=== PATIENT | male | born 1990 | race Caucasian/White ===

== ENCOUNTER 2017-02-15 01:40 | Emergency (ER) | payer SELFPAY ==
[~2017-02-15] VITALS: Ht 182.9 cm; Wt 101.0 kg
[~2017-02-15 01:40] MED LIST: AMOX875 PO; HYDR-3533 PO; IBUP600T26 PO; MMW SSP
[2017-02-15 01:46] VITALS: BP 124/84; PULSE 99; RESP 18; TEMP 98.2; O2SAT 98
[2017-02-15 01:59] VITALS: BP 124/84; PULSE 99; RESP 18; TEMP 98.2; O2SAT 98
[2017-02-15] MEDS ORDERED: AMOX500T PO (02:05)
[2017-02-15] MEDS ORDERED: IBUP-232 PO (02:05)
--- NOTE | 2017-02-15 02:06 | PD ---
HPI Chief Complaint: Oral / Dental Pain or Problem Time Seen by Provider: 02:04 Travel History International Travel<30 days: No Contact w/Intl Traveler<30days: No Traveled to known affect area: No History of Present Illness HPI Patient is a 27-year-old male presents to emergency department for evaluation of headache. Patient states that he's noticed his teeth have been hurting primarily in the left lower and right lower side for the past few days and this is extended into pain under his tongue now radiating up into the occiput of his head. Denies any fever denies any facial swelling. States that he has not followed up with a dentist in the past, he had some amoxicillin that was left over from a prior prescription and he took some of these the other day. Has not tried anything for pain prior to arrival. Does not follow-up with a dentist. Denies the worst headache of his life, denies thunderclap presentation , denies any blurred vision focalized weakness numbness tingling in extremities. [facility] Past Medical History Asthma: No Diminished Hearing: No GERD: Yes ( AN INFANT) Seizures: Yes (seizures as a small child - last seizure around age 3) Social History Alcohol Use: No Tobacco Use: No Substance Use: No Allergies-Medications (Allergen,Severity, Reaction): Coded Allergies: No Known Allergies (Verified , 02/15/17) Reported Meds & Prescriptions Reported Meds & Active Scripts Active Amoxicillin 500 Mg Tab 500 Mg PO BID 10 Days Ibuprofen 600 Mg Tab 600 Mg PO Q6H PRN Review of Systems Except as stated in HPI: all other systems reviewed are Neg Physical Exam Narrative GENERAL: Well-nourished, well-developed patient. In no distress. Appears comfortable and not in any pain. SKIN: Focused skin assessment warm/dry. HEAD: Normocephalic. Atraumatic, bearded but no facial swelling seen. EYES: No scleral icterus. No injection or drainage. ENT: TMs clear bilaterally, oropharynx clear and patent, no sublingual tenderness. There are multiple dental caries seen particularly on the molars in bilateral upper and lower sides. There is some erosion on the primary incisor on the maxillary surface. No obvious dental abscess seen. NECK: Supple, trachea midline. No JVD or lymphadenopathy. CARDIOVASCULAR: Regular rate and rhythm without murmurs, gallops, or rubs. RESPIRATORY: Breath sounds equal bilaterally. No accessory muscle use. GASTROINTESTINAL: Abdomen soft, non-tender, nondistended. MUSCULOSKELETAL: No cyanosis, or edema. NEUROLOGICAL: Cranial nerves II through XII are grossly intact and nonfocal, 5 out of 5 strength in all 4 extremities. BACK: Nontender without obvious deformity. No CVA tenderness. Data Data Last Documented VS Vital Signs Date Time Temp Pulse Resp B/P Pulse Ox O2 Delivery O2 Flow Rate FiO2 02/15/17 02:01 99 18 02/15/17 01:59 98.2 124/84 98 Orders Ibuprofen (Motrin) (02/15/17 02:15) Amoxicillin (Trimox) (02/15/17 02:15) [facility] Medical Decision Making Medical Screen Exam Complete: Yes Emergency Medical Condition: Yes Differential Diagnosis Dental pain, headache, jaw pain, subarachnoid hemorrhage seems highly unlikely, acute intracranial pathology seems highly unlikely. Narrative Course 27-year-old male appears well in no obvious distress. Complains of a headache and sublingual pain. Multiple dental caries seen. Discussed he needs follow- up with dentist. He was given ibuprofen for pain, ambulated from the emergency department smiling and in no obvious distress. He is stable for discharge at this time. He was also given a dental referral packet and a referral to the [facility]. Diagnosis Primary Impression: Headache Additional Impression: Dental caries Additional Instructions: Take your antibiotics until all of them are gone. Follow-up with a dentist, follow-up with your primary care physician or the [facility] for a checkup. If he start having high fevers return to the emergency department. Med/Other Pt SpecificInfo: Prescription(s) given Scripts Amoxicillin 500 Mg [id number] Mg PO BID 10 Days Ref 0 Prov:Flo Raphael MD 02/15/17 Ibuprofen 600 Mg [id number] Mg PO Q6H PRN (PAIN) #30 TAB Ref 0 Prov:Flo Raphael MD 02/15/17 Disposition: 01 DISCHARGE HOME Condition: Stable Flo Raphael MD Feb 15, 2017 02:06
[2017-02-15] MEDS ORDERED: IBUPROFEN 600 MG TAB PO ONE (02:15)
[2017-02-15] MEDS ORDERED: AMOXICILLIN (TRIHYDRATE) 500 MG CAP PO ONE (02:15)
== END 2017-02-15 02:30 | disposition home or self-care (01) ==
LOC: PHED 01:40
DX: R51 Headache (principal); K02.9 Dental caries, unspecified
CPT/HCPCS: 99283

== ENCOUNTER 2017-03-23 23:46 | Emergency (ER) | payer MEDICAID ==
[~2017-03-23] VITALS: Ht 182.9 cm; Wt 98.0 kg
[~2017-03-23 23:46] MED LIST changes: +AMOX500T PO; -AMOX875 PO; -HYDR-3533 PO; +IBUP-232 PO; -IBUP600T26 PO; -MMW SSP
[2017-03-23 23:56] VITALS: BP 135/95; PULSE 81; RESP 18; TEMP 98.5; O2SAT 95
[2017-03-24] MEDS ORDERED: AMOX500T PO (00:45)
--- NOTE | 2017-03-24 00:46 | PD ---
HPI Chief Complaint: Chest Pain Time Seen by Provider: 00:39 Travel History International Travel<30 days: No Contact w/Intl Traveler<30days: No Traveled to known affect area: No History of Present Illness HPI The patient is a 27-year-old male that complains of a dental infection around teeth #17 and 18. He does have a dental appointment next month. He felt little bit of chest pain but this apparently has resolved and was related to his swelling in his left cheek. He does notice swelling in the left buccal area. He denies any fever or chills. He denies any history of heart disease. [facility] Past Medical History Medical History: Denies Significant Hx Asthma: No Diminished Hearing: No GERD: Yes ( AN ) Seizures: Yes (seizures as a small child - last seizure around age 3) Tetanus Vaccination: Unknown Influenza Vaccination: No Past Surgical History Surgical History: No Previous Surgery Social History Alcohol Use: Yes Tobacco Use: Yes Substance Use: No Allergies-Medications (Allergen,Severity, Reaction): Coded Allergies: No Known Allergies (Verified , 03/23/17) Reported Meds & Prescriptions Reported Meds & Active Scripts Active Review of Systems Except as stated in HPI: all other systems reviewed are Neg Physical Exam Narrative GENERAL: The patient is alert, oriented 3 and moderate apparent distress with his dental discomfort. His vital signs show blood pressure 135/95 but are otherwise normal. SKIN: Focused skin assessment warm/dry. HEAD: Atraumatic. Normocephalic. EYES: Pupils equal and round. No scleral icterus. No injection or drainage. ENT: No nasal bleeding or discharge. Mucous membranes pink and moist. NECK: Trachea midline. No JVD. CARDIOVASCULAR: Regular rate and rhythm. No murmur appreciated. RESPIRATORY: No accessory muscle use. Clear to auscultation. Breath sounds equal bilaterally. GASTROINTESTINAL: Abdomen soft, non-tender, nondistended. Hepatic and splenic margins not palpable. MUSCULOSKELETAL: No obvious deformities. No clubbing. No cyanosis. No edema. NEUROLOGICAL: Awake and alert. No obvious cranial nerve deficits. Motor grossly within normal limits. Normal speech. PSYCHIATRIC: Appropriate mood and affect; insight and judgment normal. DENTAL: No loose or chipped teeth. No malocclusion. There is exquisite tenderness over teeth #17 and 18 without any drainable abscess. There is externally visible buccal swelling on the left. Data Data Last Documented VS Vital Signs Date Time Temp Pulse Resp B/P Pulse Ox O2 Delivery O2 Flow Rate FiO2 03/24/17 00:00 Room Air 03/23/17 23:56 98.5 81 18 135/95 95 MDM Medical Decision Making Medical Screen Exam Complete: Yes Emergency Medical Condition: Yes Medical Record Reviewed: Yes Interpretation(s) The EKG shows sinus rhythm with a rate of 82 and is completely normal. Differential Diagnosis Dental infection, Kai's anginaunlikely, drainable abscess, acute coronary syndromehighly unlikely Narrative Course The patient has a dental infection. There are no drainable abscess is present. Diagnosis Primary Impression: Dental caries Additional Instructions: Make sure you keep your appointment with a dentist. I gave you to refills on the antibiotics and it is free at [facility]. The Motrin is 800 mg 3 times daily. Med/Other Pt SpecificInfo: Prescription(s) given Scripts Amoxicillin 500 Mg [id number] Mg PO TID 14 Days Ref 0 Prov:Rubin Orr MD 03/24/17 Disposition: 01 DISCHARGE HOME Condition: Stable Rubin Orr MD Mar 24, 2017 00:46
[2017-03-24] MEDS ORDERED: IBUP800T23 PO (00:49)
[2017-03-24] MEDS ORDERED: cefTRIAXone INJ 1,000 MG in SODIUM CHLORIDE 0.9% INJ 100 ML IV ONE (01:00)
[2017-03-24 01:35] VITALS: BP 130/88; PULSE 80; RESP 18; O2SAT 98
--- NOTE | 2017-03-25 16:50 | EKG ---
Date Performed: 03/23/2017 Time Performed: 23:56:12 PTAGE: 27 years EKG: Sinus rhythm NORMAL ECG INTERPRETATION BASED ON A DEFAULT AGE OF 41 YEARS PREVIOUS TRACING 02/04/2013 19.53.32 Since previous tracing, no significant change noted DOCTOR: Mavis High Interpretating Date/Time 03/25/2017 16:47:12
== END 2017-03-24 01:35 | disposition home or self-care (01) ==
LOC: PHED 23:46
DX: K02.9 Dental caries, unspecified (principal); K04.7 Periapical abscess without sinus; Z72.0 Tobacco use
CPT/HCPCS: 93005; 96365; 99284; J0696

== ENCOUNTER 2017-04-09 04:27 | Emergency (ER) | payer MEDICAID ==
[~2017-04-09] VITALS: Ht 182.9 cm; Wt 98.0 kg
[~2017-04-09 04:27] MED LIST changes: -IBUP-232 PO; +IBUP800T23 PO
[2017-04-09 04:32] VITALS: BP 131/81; PULSE 69; RESP 18; TEMP 97.7; O2SAT 98
[2017-04-09] MEDS ORDERED: IBUP800T23 PO (05:07)
[2017-04-09] MEDS ORDERED: AMOX500T PO (05:07)
--- NOTE | 2017-04-09 05:08 | PD ---
HPI Chief Complaint: Oral / Dental Pain or Problem Time Seen by Provider: 05:01 Travel History International Travel<30 days: No Contact w/Intl Traveler<30days: No Traveled to known affect area: No History of Present Illness HPI The patient is a 27-year-old male with a history of dental infection who complains of numbness along the lower lip. He is already on amoxicillin and the ibuprofen. He has very little pain and he has a dental appointment on the sixth of next month. [facility] Past Medical History Asthma: No Diminished Hearing: No GERD: Yes ( AN ) Immunizations Current: Yes Seizures: Yes (seizures as a small child - last seizure around age 3) Tetanus Vaccination: Unknown Influenza Vaccination: No Past Surgical History Surgical History: No Previous Surgery Social History Alcohol Use: Yes Tobacco Use: Yes Substance Use: No Allergies-Medications (Allergen,Severity, Reaction): Coded Allergies: No Known Allergies (Verified , 04/09/17) Reported Meds & Prescriptions Reported Meds & Active Scripts Active Amoxicillin 500 Mg Tab 500 Mg PO TID 14 Days Review of Systems Except as stated in HPI: all other systems reviewed are Neg Physical Exam Narrative GENERAL: Well-nourished, well-developed patient in minimal apparent distress with his dental discomfort. His vital signs are normal. SKIN: Focused skin assessment warm/dry. HEAD: Normocephalic. EYES: No scleral icterus. No injection or drainage. NECK: Supple, trachea midline. No JVD or lymphadenopathy. CARDIOVASCULAR: Regular rate and rhythm without murmurs, gallops, or rubs. RESPIRATORY: Breath sounds equal bilaterally. No accessory muscle use. GASTROINTESTINAL: Abdomen soft, non-tender, nondistended. MUSCULOSKELETAL: No cyanosis, or edema. BACK: Nontender without obvious deformity. No CVA tenderness. DENTAL: No loose or chipped teeth. No malocclusion. The patient does have some slight tenderness along the area of tooth #17. No drainable abscesses are noted. Data Data Last Documented VS Vital Signs Date Time Temp Pulse Resp B/P (MAP) Pulse Ox O2 Delivery O2 Flow Rate FiO2 04/09/17 04:32 97.7 69 18 131/81 (98) 98 MDM Medical Decision Making Medical Screen Exam Complete: Yes Emergency Medical Condition: Yes Medical Record Reviewed: Yes Differential Diagnosis Drainable dental abscess, non-drainable dental infection, TMJ pain, ear pain- unlikely Narrative Course The patient has a dental infection which is non-drainable. He will be continuing the amoxicillin and ibuprofen which appear to be working fairly well. He will follow-up as scheduled with his dentist or try to get an earlier appointment. Diagnosis Primary Impression: Dental infection Scripts Amoxicillin (Amoxicillin) 500 Mg Tab 500 MG PO TID for Infection, #30 TAB 0 Refills Prov: Rubin Orr MD 04/09/17 Ibuprofen (Ibuprofen) 800 Mg Tab 800 MG PO TID, #33 TAB 0 Refills Prov: Rubin Orr MD 04/09/17 Disposition: 01 DISCHARGE HOME Condition: Stable Rubin Orr MD Apr 09, 2017 05:08
== END 2017-04-09 05:14 | disposition home or self-care (01) ==
LOC: PHED 04:27
DX: K04.7 Periapical abscess without sinus (principal)
CPT/HCPCS: 99283

== ENCOUNTER 2017-04-30 07:50 | Emergency (ER) | payer MEDICAID ==
[~2017-04-30] VITALS: Ht 182.9 cm; Wt 98.0 kg
[2017-04-30 07:53] VITALS: BP 141/93; PULSE 67; RESP 12; TEMP 98.3; O2SAT 98
[2017-04-30 08:17] VITALS: BP 126/73; PULSE 69; RESP 14; O2SAT 98
[2017-04-30 08:42] LABS: BASOPHIL % 0.4 % (0.0-2.0); EOSINOPHIL # 0.3 TH/MM3 (0-0.4); EOSINOPHIL % 4.1 % (0.0-4.0); HEMATOCRIT 42.5 % (39.0-51.0); HEMO FLAGS DIFF FINAL; LYMPH % 28.3 % (9.0-44.0); LYMPHOCYTE # 2.3 TH/MM3 (1.0-4.8); MEAN CELL VOLUME 84.6 FL (80.0-100.0); MEAN CORPUSCULAR HEMOGLOBIN 29.5 PG (27.0-34.0); MEAN CORPUSCULAR HGB CONC 34.9 % (32.0-36.0); NEUT % 60.2 % (16.0-70.0); PLATELET COUNT 238 TH/MM3 (150-450); RED BLOOD COUNT 5.02 MIL/MM3 (4.50-5.90); RED CELL DISTRIBUTION WIDTH 13.6 % (11.6-17.2); WHITE BLOOD COUNT 8.3 TH/MM3 (4.0-11.0)
[2017-04-30 08:54] LABS: ANION GAP 3 MEQ/L (5-15); BICARBONATE 26.7 MEQ/L (21.0-32.0); BLOOD UREA NITROGEN 6 MG/DL (7-18); CHLORIDE 109 MEQ/L (98-107); GLOMERULAR FILTRATION RATE 92 ML/MIN (>89); POTASSIUM 4.1 MEQ/L (3.5-5.1); SODIUM (NA) 139 MEQ/L (136-145)
[2017-04-30 08:57] LABS: CREATINE KINASE 249 U/L (39-308)
--- NOTE | 2017-04-30 09:09 | RADRPT ---
EXAM DATE/TIME: 04/30/2017 08:44 [facility] COMPARISON: No previous studies available for comparison. INDICATIONS : Chest pain. Patient complains of headache, bilateral hand and arm pain., dizziness, and heart racing. MEDICAL HISTORY : None. SURGICAL HISTORY : None. ENCOUNTER: Initial ACUITY: 2 days PAIN SCORE: 0/10 LOCATION: Bilateral chest FINDINGS: A single view of the chest demonstrates the lungs to be symmetrically aerated without evidence of mas s, infiltrate or effusion. The cardiomediastinal contours are unremarkable. Osseous structures are intact. CONCLUSION: No acute disease. Chris Curtis MD on April 30, 2017 at 9:08 Board Certified Radiologist. This report was verified electronically.
[2017-04-30 09:11] LABS: CKMB 0.6 NG/ML (0.5-3.6)
[2017-04-30] MEDS ORDERED: PENI500T PO (10:01)
--- NOTE | 2017-04-30 10:01 | PD ---
HPI Chief Complaint: Chest Pain Time Seen by Provider: 08:02 Travel History International Travel<30 days: No Contact w/Intl Traveler<30days: No Traveled to known affect area: No History of Present Illness HPI 27 year old male complains of dentalgia, cephalgia, palpitations, shooting pains in the arms bilaterally, chest pain and insomnia. pt also requests undersigned to complete labor release form. dentalgia is chronic in nature and patient reports prior tx w amox helpful. he is looking for a dentist. cephalgia gradual in onset without fever. no neck stiffness. palpitations come and go. no lightheadedness or syncope/loc. pt drinks 1-2 energy drinks daily. shooting pains in arms are intermittent. no numbness/weakness. pt denies drug alcohol abuse. PFSH Past Medical History Medical History: Denies Significant Hx Asthma: No Diminished Hearing: No GERD: Yes ( AN INFANT) Immunizations Current: Yes Seizures: Yes (seizures as a small child - last seizure around age 3) Tetanus Vaccination: Unknown ?: Not Past Surgical History Surgical History: No Previous Surgery Social History Alcohol Use: Yes ("every other now and then") Tobacco Use: No Substance Use: No Allergies-Medications (Allergen,Severity, Reaction): Coded Allergies: No Known Allergies (Verified , 04/30/17) Reported Meds & Prescriptions Reported Meds & Active Scripts Active Hydroxyzine HCl 50 Mg Tab 50 Mg PO QID PRN Penicillin V Potassium 500 Mg Tab 500 Mg PO Q8H 7 Days Reported Ibuprofen 200 Mg Cap 400 Mg PO Q4H PRN Review of Systems Except as stated in HPI: all other systems reviewed are Neg General / Constitutional: No: Fever Physical Exam Narrative GENERAL: 27 yo male, nad, wnwd, ambulatory DENTITION: Poor dentition generally; carious dentition L upper and lower sides; no ulcerations; no abscess SKIN: Warm and dry. HEAD: Atraumatic. Normocephalic. EYES: Pupils equal and round. No scleral icterus. No injection or drainage. ENT: No nasal bleeding or discharge. Mucous membranes pink and moist. NECK: Trachea midline. No JVD. CARDIOVASCULAR: Regular rate and rhythm. RESPIRATORY: No accessory muscle use. Clear to auscultation. Breath sounds equal bilaterally. GASTROINTESTINAL: Abdomen soft, non-tender, nondistended. Hepatic and splenic margins not palpable. MUSCULOSKELETAL: Extremities without clubbing, cyanosis, or edema. No obvious deformities. NEUROLOGICAL: Awake and alert. No obvious cranial nerve deficits. Motor grossly within normal limits. Five out of 5 muscle strength in the arms and legs. Normal speech. PSYCHIATRIC: Appropriate mood and affect; insight and judgment normal. Data Data Last Documented VS Vital Signs Date Time Temp Pulse Resp B/P (MAP) Pulse Ox O2 Delivery O2 Flow Rate FiO2 04/30/17 10:15 04/30/17 08:17 69 14 98 Room Air 04/30/17 07:53 98.3 vs reviewed Orders Orders Electrocardiogram (04/30/17 ) Complete Blood Count With Diff (04/30/17 08:08) Basic Metabolic Panel (Bmp) (04/30/17 08:08) Ckmb (Isoenzyme) Profile (04/30/17 08:08) Troponin I (04/30/17 08:08) Chest, Single Ap (04/30/17 08:08) Iv Access Insert/Monitor (04/30/17 08:08) Ecg Monitoring (04/30/17 08:08) Oxygen Administration (04/30/17 08:08) Oximetry (04/30/17 08:08) CKMB (04/30/17 08:20) CKMB% (04/30/17 08:20) Labs Laboratory Tests Test 04/30/17 08:20 White Blood Count 8.3 TH/MM3 Red Blood Count 5.02 MIL/MM3 Hemoglobin 14.8 GM/DL Hematocrit 42.5 % Mean Corpuscular Volume 84.6 FL Mean Corpuscular Hemoglobin 29.5 PG Mean Corpuscular Hemoglobin Concent 34.9 % Red Cell Distribution Width 13.6 % Platelet Count 238 TH/MM3 Mean Platelet Volume 9.3 FL Neutrophils (%) (Auto) 60.2 % Lymphocytes (%) (Auto) 28.3 % Monocytes (%) (Auto) 7.0 % Eosinophils (%) (Auto) 4.1 % Basophils (%) (Auto) 0.4 % Neutrophils # (Auto) 5.0 TH/MM3 Lymphocytes # (Auto) 2.3 TH/MM3 Monocytes # (Auto) 0.6 TH/MM3 Eosinophils # (Auto) 0.3 TH/MM3 Basophils # (Auto) 0.0 TH/MM3 CBC Comment DIFF FINAL Differential Comment Blood Urea Nitrogen 6 MG/DL Creatinine 0.98 MG/DL Random Glucose 117 MG/DL Calcium Level 8.8 MG/DL Sodium Level 139 MEQ/L Potassium Level 4.1 MEQ/L Chloride Level 109 MEQ/L Carbon Dioxide Level 26.7 MEQ/L Anion Gap 3 MEQ/L Estimat Glomerular Filtration Rate 92 ML/MIN Total Creatine Kinase 249 U/L Creatine Kinase MB 0.6 NG/ML Troponin I LESS THAN 0.02 NG/ML MDM Medical Decision Making Medical Screen Exam Complete: Yes Emergency Medical Condition: Yes Differential Diagnosis anxiety, dental carry, abscess, electrolyte abnormality, anemia, acs, arrhythmia , meningitis, tmj Narrative Course CBC & BMP Diagram 04/30/17 08:20 Calcium Level 8.8 Tn < 0.02 EKG: sinus, no ischemic injury pattern, normal axis and intervals Last Impressions Chest X-Ray 04/30/17 0808 Signed Impressions: Service Date/Time: Sunday, April 30, 2017 08:44 - CONCLUSION: No acute disease. Chris Curtis MD Pt reassured. Follow up with dentist. Dental infection may benefit from pen vk. Follow up with pmd for completion of return to work form, including lifting abilities and work restrictions. Diagnosis Primary Impression: Dental caries Additional Impressions: Headache Qualified Codes: R51 - Headache Palpitations Referrals: Dentist 2 days Med/Other Pt SpecificInfo: Prescription(s) given Scripts Penicillin V Potassium (Penicillin V Potassium) 500 Mg Tab 500 MG PO Q8H for Infection for 7 Days, #21 TAB 0 Refills Prov: Joaquin Deng MD 04/30/17 Disposition: 01 DISCHARGE HOME Condition: Stable Joaquin Deng MD Apr 30, 2017 10:01
--- NOTE | 2017-04-30 14:09 | EKG ---
Date Performed: 04/30/2017 Time Performed: 08:11:39 PTAGE: 27 years EKG: Sinus rhythm NORMAL ECG Compared to prior tracing no significant change PREVIOUS TRACING : 03/23/2017 23.56 DOCTOR: Nathaniel Oseguera Interpretating Date/Time 04/30/2017 14:06:51
[2017-04-30] MEDS ORDERED: IBUP200C PO (15:35)
[2017-04-30] MEDS ORDERED: HYDR50TA94 PO (16:01)
== END 2017-04-30 10:17 | disposition home or self-care (01) ==
LOC: NEPE 07:50
DX: K02.9 Dental caries, unspecified (principal); R51 Headache; R00.2 Palpitations; K21.9 Gastro-esophageal reflux disease without esophagitis; R56.9 Unspecified convulsions; G47.00 Insomnia, unspecified
CPT/HCPCS: 71010; 80048; 82550; 82552; 84484; 85025; 93005; 99284

== ENCOUNTER 2017-04-30 15:28 | Emergency (ER) | payer MEDICAID ==
[~2017-04-30 15:28] MED LIST changes: +PENI500T PO
[2017-04-30 15:31] VITALS: BP 146/70; PULSE 86; RESP 18; TEMP 98.5; O2SAT 98
[2017-04-30] MEDS ORDERED: IBUP200C PO (15:35)
--- NOTE | 2017-04-30 15:55 | PD ---
HPI . Palpitations Chief Complaint: Anxiety Time Seen by Provider: 15:47 Travel History International Travel<30 days: No Contact w/Intl Traveler<30days: No Traveled to known affect area: No History of Present Illness HPI Patient presents with a several day history of intermittent palpitations, paresthesias of the hands and feet and blurred vision. He states that the symptoms tend to occur at rest and resolve when he is busy doing something. 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 He developed these symptoms and was seen at a hospital in [place] yesterday morning. He states that he was given a couple of bags of fluid and some medication. He states that he subsequently slept the whole day. He was then sent home by his employer yesterday evening. He presented to the emergency department at [facility] this morning for these symptoms. He was fully evaluated and his workup was negative. He was discharged home with a prescription for penicillin for his dental caries. He states that his symptoms have persisted causing him to present to us this afternoon. He rates his chest pain as 7/10. PFSH Past Medical History Asthma: No Diminished Hearing: No GERD: Yes ( AN INFANT) Immunizations Current: Yes Seizures: Yes (seizures as a small child - last seizure around age 3) Influenza Vaccination: No ?: Not Past Surgical History Surgical History: No Previous Surgery Social History Alcohol Use: Yes ("every other now and then") Tobacco Use: No Substance Use: No Allergies-Medications (Allergen,Severity, Reaction): Coded Allergies: No Known Allergies (Verified , 04/30/17) Reported Meds & Prescriptions Reported Meds & Active Scripts Active Penicillin V Potassium 500 Mg Tab 500 Mg PO Q8H 7 Days Reported Ibuprofen 200 Mg Cap 400 Mg PO Q4H PRN Review of Systems Except as stated in HPI: all other systems reviewed are Neg General / Constitutional: No: Fever, Chills Eyes: Positive: Blurred Vision HENT: Positive: Dental Difficulties Cardiovascular: Positive: Chest Pain or Discomfort, Palpitations Respiratory: Positive: Shortness of Breath Neurologic: Positive: Paresthesia Physical Exam Narrative GENERAL: Awake and alert and in no acute distress. SKIN: warm/dry. Sunburn. HEAD: Normocephalic. Atraumatic. EYES: Pupils equal and round. No scleral icterus. No injection or drainage. ENT: No nasal bleeding or discharge. Mucous membranes pink and moist. NECK: Trachea midline. Full range of motion without pain.. CARDIOVASCULAR: Regular rate and rhythm. Heart sounds are normal. RESPIRATORY: No accessory muscle use. Clear to auscultation. Breath sounds equal bilaterally. GASTROINTESTINAL: Abdomen soft. Nontender. Bowel sounds present. Nondistended. MUSCULOSKELETAL: No obvious deformities. NEUROLOGICAL: Awake and alert. No obvious cranial nerve deficits. Motor grossly within normal limits. Normal speech. PSYCHIATRIC: Appropriate mood and affect; insight and judgment normal. Data Data Last Documented VS Vital Signs Date Time Temp Pulse Resp B/P (MAP) Pulse Ox O2 Delivery O2 Flow Rate FiO2 04/30/17 15:34 86 04/30/17 15:31 98.5 18 146/70 (95) 98 MDM Medical Decision Making Medical Screen Exam Complete: Yes Emergency Medical Condition: Yes Medical Record Reviewed: Yes (this patient was seen earlier today and had an unremarkable CBC, normal electrolytes, normal BUN and creatinine, CK 249, troponin of less than 0.02 and a normal EKG.) Differential Diagnosis Differential diagnosis of palpitations includes but is not limited to anxiety, SVT, aVF with RVR, VT, sinus tachycardia, PVCs Narrative Course This patient presents with signs and symptoms that are classic for panic attacks. He has already had a normal workup earlier today at the main hospital. He will be discharged home with a prescription for hydroxyzine and with instructions to follow up at the [facility]. Diagnosis Primary Impression: Anxiety Patient Instructions: Anxiety (DC), General Instructions Med/Other Pt SpecificInfo: Prescription(s) given Scripts Hydroxyzine HCl (Hydroxyzine HCl) 50 Mg Tab 50 MG PO QID Y for panic attacks, #30 TAB 0 Refills Prov: Chrissie Jacobsen MD 04/30/17 Disposition: 01 DISCHARGE HOME Condition: Stable Chrissie Jacobsen MD Apr 30, 2017 15:55
[2017-04-30] MEDS ORDERED: HYDR50TA94 PO (16:01)
== END 2017-04-30 16:16 | disposition home or self-care (01) ==
LOC: PHED 15:28
DX: F41.9 Anxiety disorder, unspecified (principal)
CPT/HCPCS: 99283

== ENCOUNTER 2017-05-07 01:01 | Emergency (ER) | payer MEDICAID ==
[~2017-05-07] VITALS: Ht 182.9 cm; Wt 97.2 kg
[~2017-05-07 01:01] MED LIST changes: -AMOX500T PO; +HYDR50TA94 PO; +IBUP200C PO; -IBUP800T23 PO
[2017-05-07 01:06] VITALS: BP 126/76; PULSE 69; RESP 16; TEMP 97.8; O2SAT 99
[2017-05-07 01:20] VITALS: BP 133/76; PULSE 55; RESP 16; O2SAT 99
--- NOTE | 2017-05-07 01:52 | PD ---
HPI Chief Complaint: Chest Pain Time Seen by Provider: 01:48 Travel History International Travel<30 days: No Contact w/Intl Traveler<30days: No Traveled to known affect area: No History of Present Illness HPI The patient is a 27-year-old male that complains of head pain for possibly 1 hour. He is a frequent visitor to the emergency department usually for minor problems like anxiety and dental infections. The patient denies any focal neurologic change. He said he had some slight chest pain but this is gone. He does not have a history of heart disease. He may have a history of alcohol abuse. PFSH Past Medical History Asthma: No Diminished Hearing: No GERD: Yes ( AN INFANT) Immunizations Current: Yes Seizures: Yes (seizures as a small child - last seizure around age 3) Tetanus Vaccination: > 5 Years Influenza Vaccination: No Past Surgical History Surgical History: No Previous Surgery Social History Alcohol Use: Yes (Occasionally) Tobacco Use: No Substance Use: No Allergies-Medications (Allergen,Severity, Reaction): Coded Allergies: No Known Allergies (Verified , 05/07/17) Reported Meds & Prescriptions Reported Meds & Active Scripts Active Hydroxyzine HCl 50 Mg Tab 50 Mg PO QID PRN Penicillin V Potassium 500 Mg Tab 500 Mg PO Q8H 7 Days Reported Ibuprofen 200 Mg Cap 400 Mg PO Q4H PRN Review of Systems Except as stated in HPI: all other systems reviewed are Neg Physical Exam Narrative GENERAL: The patient is alert, oriented 3 in minimal apparent distress with his head pain. His vital signs are normal. SKIN: Focused skin assessment warm/dry. HEAD: Atraumatic. Normocephalic. EYES: Pupils equal and round. No scleral icterus. No injection or drainage. ENT: No nasal bleeding or discharge. Mucous membranes pink and moist. NECK: Trachea midline. No JVD. There is no meningismus present. CARDIOVASCULAR: Regular rate and rhythm. No murmur appreciated. RESPIRATORY: No accessory muscle use. Clear to auscultation. Breath sounds equal bilaterally. GASTROINTESTINAL: Abdomen soft, non-tender, nondistended. Hepatic and splenic margins not palpable. No guarding or rebound is present. MUSCULOSKELETAL: No obvious deformities. No clubbing. No cyanosis. No edema. NEUROLOGICAL: Awake and alert. No obvious cranial nerve deficits. Motor grossly within normal limits. Normal speech. PSYCHIATRIC: Appropriate mood and affect; insight and judgment normal. Data Data Last Documented VS Vital Signs Date Time Temp Pulse Resp B/P (MAP) Pulse Ox O2 Delivery O2 Flow Rate FiO2 05/07/17 01:06 97.8 69 16 126/76 (93) 99 Orders Orders Electrocardiogram (05/07/17 01:48) Complete Blood Count With Diff (05/07/17 01:48) Basic Metabolic Panel (Bmp) (05/07/17 01:48) Troponin I (05/07/17 01:48) Ct Brain W/O Iv Contrast(Rout) (05/07/17 01:48) Ketorolac Inj (Toradol Inj) (05/07/17 02:45) Labs Laboratory Tests Test 05/07/17 02:15 White Blood Count 8.6 TH/MM3 Red Blood Count 5.09 MIL/MM3 Hemoglobin 14.7 GM/DL Hematocrit 42.8 % Mean Corpuscular Volume 84.0 FL Mean Corpuscular Hemoglobin 28.8 PG Mean Corpuscular Hemoglobin Concent 34.3 % Red Cell Distribution Width 12.5 % Platelet Count 252 TH/MM3 Mean Platelet Volume 9.3 FL Neutrophils (%) (Auto) 47.6 % Lymphocytes (%) (Auto) 36.4 % Monocytes (%) (Auto) 9.2 % Eosinophils (%) (Auto) 6.1 % Basophils (%) (Auto) 0.7 % Neutrophils # (Auto) 4.1 TH/MM3 Lymphocytes # (Auto) 3.1 TH/MM3 Monocytes # (Auto) 0.8 TH/MM3 Eosinophils # (Auto) 0.5 TH/MM3 Basophils # (Auto) 0.1 TH/MM3 CBC Comment DIFF FINAL Differential Comment Blood Urea Nitrogen 11 MG/DL Creatinine 0.83 MG/DL Random Glucose 99 MG/DL Calcium Level 8.9 MG/DL Sodium Level 140 MEQ/L Potassium Level 3.7 MEQ/L Chloride Level 106 MEQ/L Carbon Dioxide Level 27.4 MEQ/L Anion Gap 7 MEQ/L Estimat Glomerular Filtration Rate 112 ML/MIN Troponin I LESS THAN 0.02 NG/ML MDM Medical Decision Making Medical Screen Exam Complete: Yes Emergency Medical Condition: Yes Medical Record Reviewed: Yes Interpretation(s) The basic metabolic profile is normal and the troponin I is normal. The CBC is normal. The CT brain is normal. Differential Diagnosis Anxiety, tension headache, drug seeking behavior, migraine headache-unlikely, Narrative Course The patient has anxiety but also has a headache which may simply be a conversion reaction or tension headache. The patient is given Motrin for this. Diagnosis Primary Impression: Headache Additional Impression: Anxiety about health Additional Instructions: Take the Motrin one tablet every 8 hours as needed for the headache or aches and pains that you have. Follow-up with a primary care physician. Med/Other Pt SpecificInfo: Prescription(s) given Scripts Ibuprofen (Ibuprofen) 800 Mg Tab 800 MG PO Q8H Y for headache, #44 TAB 0 Refills Prov: Rubin Orr MD 05/07/17 Disposition: 01 DISCHARGE HOME Condition: Stable Rubin Orr MD May 07, 2017 01:52
--- NOTE | 2017-05-07 02:20 | RADRPT ---
EXAM DATE/TIME: 05/07/2017 02:05 [facility] COMPARISON: No previous studies available for comparison. INDICATIONS : Cephalgia. RADIATION DOSE: 57.86 CTDIvol (mGy) MEDICAL HISTORY : Seizures. SURGICAL HISTORY : None. ENCOUNTER: Initial ACUITY: 1 day PAIN SCALE: 7/10 LOCATION: Bilateral cranial TECHNIQUE: Multiple contiguous axial images were obtained of the head. Using automated exposure control and adj ustment of the mA and/or kV according to patient size, radiation dose was kept as low as reasonably a chievable to obtain optimal diagnostic quality images. DICOM format image data is available electro nically for review and comparison. FINDINGS: CEREBRUM: The ventricles are normal for age. No evidence of midline shift, mass lesion, hemorrhage or acute in farction. No extra-axial fluid collections are seen. POSTERIOR FOSSA: The cerebellum and brainstem are intact. The 4th ventricle is midline. The cerebellopontine angle i s unremarkable. EXTRACRANIAL: The visualized portion of the orbits is intact. SKULL: The calvaria is intact. No evidence of skull fracture. CONCLUSION: Normal examination. Jose Martin Lopez MD on May 07, 2017 at 2:17 Board Certified Radiologist. This report was verified electronically.
[2017-05-07 02:32] LABS: AUTOMATED NEUTROPHIL # 4.1 TH/MM3 (1.8-7.7); BASOPHIL # 0.1 TH/MM3 (0-0.2); BASOPHIL % 0.7 % (0.0-2.0); EOSINOPHIL # 0.5 TH/MM3 (0-0.4); EOSINOPHIL % 6.1 % (0.0-4.0); HEMATOCRIT 42.8 % (39.0-51.0); HEMO FLAGS DIFF FINAL; LYMPH % 36.4 % (9.0-44.0); LYMPHOCYTE # 3.1 TH/MM3 (1.0-4.8); MEAN CORPUSCULAR HEMOGLOBIN 28.8 PG (27.0-34.0); MEAN CORPUSCULAR HGB CONC 34.3 % (32.0-36.0); MONO % 9.2 % (0.0-8.0); NEUT % 47.6 % (16.0-70.0); PLATELET COUNT 252 TH/MM3 (150-450); RED BLOOD COUNT 5.09 MIL/MM3 (4.50-5.90); RED CELL DISTRIBUTION WIDTH 12.5 % (11.6-17.2); WHITE BLOOD COUNT 8.6 TH/MM3 (4.0-11.0)
[2017-05-07 02:43] LABS: CHLORIDE 106 MEQ/L (98-107); POTASSIUM 3.7 MEQ/L (3.5-5.1); SODIUM (NA) 140 MEQ/L (136-145)
[2017-05-07] MEDS ORDERED: KETOROLAC TROMETHAMINE 60 MG/2 ML (IM) VIAL IVP ONE (02:45)
[2017-05-07 02:46] LABS: ANION GAP 7 MEQ/L (5-15); BICARBONATE 27.4 MEQ/L (21.0-32.0); BLOOD UREA NITROGEN 11 MG/DL (7-18)
[2017-05-07 02:49] LABS: GLOMERULAR FILTRATION RATE 112 ML/MIN (>89)
[2017-05-07 03:05] VITALS: BP 119/73; PULSE 66; RESP 16; O2SAT 99
[2017-05-07] MEDS ORDERED: IBUP800T23 PO (03:15)
--- NOTE | 2017-05-07 12:16 | EKG ---
Date Performed: 05/07/2017 Time Performed: 01:12:36 PTAGE: 27 years EKG: Normal Sinus rhythm Normal ECG PREVIOUS TRACING : 04/30/2017 08.11 Unchanged from the prior tracing. DOCTOR: Cosmo Jimenez Interpretating Date/Time 05/07/2017 12:16:21
== END 2017-05-07 03:34 | disposition home or self-care (01) ==
LOC: PHED 01:01
DX: R51 Headache (principal); F41.8 Other specified anxiety disorders; R07.9 Chest pain, unspecified; Z86.69 Personal history of other diseases of the nervous system and sense organs
CPT/HCPCS: 70450; 80048; 84484; 85025; 93005; 96374; 99285; J1885

== ENCOUNTER 2017-06-20 20:11 | Emergency (ER) | payer MEDICAID ==
[~2017-06-20] VITALS: Ht 182.9 cm; Wt 93.4 kg
[~2017-06-20 20:11] MED LIST changes: +IBUP1TAB7 PO
[2017-06-20 20:14] VITALS: BP 142/77; PULSE 80; RESP 16; TEMP 97.6; O2SAT 99
[2017-06-20 22:00] VITALS: BP 135/71; PULSE 57; RESP 20; O2SAT 98
--- NOTE | 2017-06-20 22:01 | PD ---
HPI Chief Complaint: Chest Pain Time Seen by Provider: 22:01 Travel History International Travel<30 days: No Contact w/Intl Traveler<30days: No Traveled to known affect area: No History of Present Illness HPI 27-year-old male came to the emergency room with history of vomiting, diarrhea and dizziness for past 3 days. His significant other is giving most of the history. She is quite vocal about his chest pain that has been going on for over a year now. As per her patient has been evaluated multiple times in [facility] for the chest pain. However the new symptoms now are the vomiting, diarrhea and dizziness. They're trying to find a primary care for him in the meanwhile. His last vomit was after he had his dinner when he gagged and vomited. No known sick contacts. Vital signs are stable. Patient says that he has burning in his epigastric area. He does not appear to be in any discomfort. The burning sensation does not radiate anywhere else. No syncopal episodes. [facility] Past Medical History Narrative Medical List of his past medical, surgical, social and family history is reviewed from the nursing note. Asthma: No Diminished Hearing: No GERD: Yes ( AN INFANT) Immunizations Current: Yes Seizures: Yes (seizures as a small child - last seizure around age 3) ?: Not Social History Alcohol Use: Yes (Occasionally) Tobacco Use: No Substance Use: No Allergies-Medications (Allergen,Severity, Reaction): Coded Allergies: No Known Allergies (Verified Adverse Reaction, Unknown, 06/20/17) Comments No known drug allergies. Reported Meds & Prescriptions Reported Meds & Active Scripts Active Naprosyn (Naproxen) 500 Mg Tab 500 Mg PO Q12HR PRN Narrative Medication List of his home medications reviewed from the nursing note. Review of Systems Except as stated in HPI: all other systems reviewed are Neg Gastrointestinal: Positive: Nausea, Vomiting, Diarrhea Physical Exam Narrative GENERAL: Awake, alert, no obvious distress SKIN: Focused skin assessment warm/dry. HEAD: Atraumatic. Normocephalic. EYES: Pupils equal and round. No scleral icterus. No injection or drainage. ENT: No nasal bleeding or discharge. Mucous membranes pink and moist. NECK: Trachea midline. No JVD. CARDIOVASCULAR: Regular rate and rhythm. No murmur appreciated. RESPIRATORY: No accessory muscle use. Clear to auscultation. Breath sounds equal bilaterally. GASTROINTESTINAL: Abdomen soft, non-tender, nondistended. Hepatic and splenic margins not palpable. MUSCULOSKELETAL: No obvious deformities. No clubbing. No cyanosis. No edema. NEUROLOGICAL: Awake and alert. No obvious cranial nerve deficits. Motor grossly within normal limits. Normal speech. PSYCHIATRIC: Appropriate mood and affect; insight and judgment normal. Data Data Last Documented VS Vital Signs Date Time Temp Pulse Resp B/P (MAP) Pulse Ox O2 Delivery O2 Flow Rate FiO2 06/21/17 00:04 51 20 127/69 (88) 98 06/20/17 23:51 98.8 Orders Orders Electrocardiogram (06/20/17 20:20) Complete Blood Count With Diff (06/20/17 22:11) Comprehensive Metabolic Panel (06/20/17 22:11) Lipase (06/20/17 22:11) Iv Access Insert/Monitor (06/20/17 22:11) Ecg Monitoring (06/20/17 22:11) Oximetry (06/20/17 22:11) Ondansetron Inj (Zofran Inj) (06/20/17 22:15) Pantoprazole Inj (Protonix Inj) (06/20/17 22:15) Sodium Chlor 0.9% 1000 Ml Inj (Ns 1000 M (06/20/17 22:11) Sodium Chloride 0.9% Flush (Ns Flush) (06/20/17 22:15) Troponin I (06/20/17 22:11) Electrocardiogram (06/20/17 ) Ed Discharge Order (06/20/17 23:08) Labs Laboratory Tests Test 06/20/17 22:25 White Blood Count 9.8 TH/MM3 Red Blood Count 5.24 MIL/MM3 Hemoglobin 14.7 GM/DL Hematocrit 43.3 % Mean Corpuscular Volume 82.6 FL Mean Corpuscular Hemoglobin 28.0 PG Mean Corpuscular Hemoglobin Concent 33.9 % Red Cell Distribution Width 12.2 % Platelet Count 266 TH/MM3 Mean Platelet Volume 9.1 FL Neutrophils (%) (Auto) 50.8 % Lymphocytes (%) (Auto) 35.9 % Monocytes (%) (Auto) 6.5 % Eosinophils (%) (Auto) 5.9 % Basophils (%) (Auto) 0.9 % Neutrophils # (Auto) 5.0 TH/MM3 Lymphocytes # (Auto) 3.5 TH/MM3 Monocytes # (Auto) 0.6 TH/MM3 Eosinophils # (Auto) 0.6 TH/MM3 Basophils # (Auto) 0.1 TH/MM3 CBC Comment DIFF FINAL Differential Comment Blood Urea Nitrogen 15 MG/DL Creatinine 0.97 MG/DL Random Glucose 108 MG/DL Total Protein 7.3 GM/DL Albumin 3.8 GM/DL Calcium Level 8.6 MG/DL Alkaline Phosphatase 115 U/L Aspartate Amino Transf (AST/SGOT) 11 U/L Alanine Aminotransferase (ALT/SGPT) 28 U/L Total Bilirubin 0.2 MG/DL Sodium Level 137 MEQ/L Potassium Level 3.6 MEQ/L Chloride Level 104 MEQ/L Carbon Dioxide Level 26.1 MEQ/L Anion Gap 7 MEQ/L Estimat Glomerular Filtration Rate 94 ML/MIN Troponin I LESS THAN 0.02 NG/ML Lipase 185 U/L MDM Medical Decision Making Medical Screen Exam Complete: Yes Emergency Medical Condition: Yes Medical Record Reviewed: Yes Interpretation(s) Twelve-lead EKG was reviewed by me. Normal sinus rhythm, normal axis, nonspecific ST-T wave changes. Heart rate of 60 bpm. Differential Diagnosis GERD, gastroenteritis, acute gastritis, peptic ulcer disease Narrative Course 11:04 PM blood test results of back and within acceptable limits. Patient was given IV Zofran and IV Protonix. I will discharge him home on prescription for omeprazole and Zofran. Procedures EKG Prior to Arrival: No Diagnosis Primary Impression: Acute gastritis Qualified Codes: K29.00 - Acute gastritis without bleeding Referrals: Primary Care Physician Additional Instructions: Please try to find a primary care for yourselves and have them refer you to a GI specialist. In the meanwhile take the medication as per the prescription direction that's been given to you from the emergency room. Avoid certain diet like those that have high acid content like lying, lemon, tomatoes, strawberries , vinegar etc. Do not drink alcohol till GI has seen you and given further recommendations. Return to the ER if the condition worsens or any other new concerns. Avoid coffee and medications like Motrin/ibuprofen/Advil once again until seen by GI and further recommendations are given. Med/Other Pt SpecificInfo: Prescription(s) given Disposition: DISCHARGE HOME Condition: Stable Myke Arndt MD Jun 20, 2017 22:01
[2017-06-20] MEDS ORDERED: SODIUM CHLOR 0.9% 1000 ML INJ 1,000 ML IV SCH (22:11)
[2017-06-20] MEDS ORDERED: SODIUM CHLORIDE 0.9% FLUSH 10 ML FLUSH IV FLUSH PRN (22:15)
[2017-06-20] MEDS ORDERED: PANTOPRAZOLE SODIUM 40 MG VIAL IVP ONE (22:15)
[2017-06-20] MEDS ORDERED: ONDANSETRON HCL 4 MG/2 ML VIAL IVP ONE (22:15)
[2017-06-20 22:33] LABS: BASOPHIL # 0.1 TH/MM3 (0-0.2); BASOPHIL % 0.9 % (0.0-2.0); EOSINOPHIL # 0.6 TH/MM3 (0-0.4); EOSINOPHIL % 5.9 % (0.0-4.0); HEMATOCRIT 43.3 % (39.0-51.0); HEMO FLAGS DIFF FINAL; LYMPH % 35.9 % (9.0-44.0); LYMPHOCYTE # 3.5 TH/MM3 (1.0-4.8); MEAN CELL VOLUME 82.6 FL (80.0-100.0); MEAN CORPUSCULAR HGB CONC 33.9 % (32.0-36.0); MONO % 6.5 % (0.0-8.0); NEUT % 50.8 % (16.0-70.0); PLATELET COUNT 266 TH/MM3 (150-450); RED BLOOD COUNT 5.24 MIL/MM3 (4.50-5.90); RED CELL DISTRIBUTION WIDTH 12.2 % (11.6-17.2); WHITE BLOOD COUNT 9.8 TH/MM3 (4.0-11.0)
[2017-06-20 22:45] LABS: CHLORIDE 104 MEQ/L (98-107); POTASSIUM 3.6 MEQ/L (3.5-5.1); SODIUM (NA) 137 MEQ/L (136-145)
[2017-06-20 22:49] LABS: ANION GAP 7 MEQ/L (5-15); BICARBONATE 26.1 MEQ/L (21.0-32.0); BLOOD UREA NITROGEN 15 MG/DL (7-18)
[2017-06-20 22:51] LABS: ALT (GPT) 28 U/L (12-78); AST (GOT) 11 U/L (15-37)
[2017-06-20 22:52] LABS: GLOMERULAR FILTRATION RATE 94 ML/MIN (>89)
[2017-06-20 22:53] LABS: TOTAL BILIRUBIN ADULT 0.2 MG/DL (0.2-1.0)
[2017-06-20 22:54] LABS: ALKALINE PHOSPHATASE 115 U/L (45-117)
[2017-06-20] MEDS ORDERED: OMEP20TA93 PO (23:07)
[2017-06-20] MEDS ORDERED: ZOFR4TAB3 SL (23:07)
[2017-06-20 23:51] VITALS: BP 127/69; PULSE 56; RESP 16; TEMP 98.8; O2SAT 99
[2017-06-21 00:04] VITALS: BP 127/69
--- NOTE | 2017-06-21 18:09 | EKG ---
Date Performed: 06/20/2017 Time Performed: 22:19:05 PTAGE: 27 years EKG: Sinus rhythm NORMAL ECG PREVIOUS TRACING : 06/20/2017 20.20 DOCTOR: Joselyn Severino Interpretating Date/Time 06/21/2017 18:07:24
--- NOTE | 2017-06-21 18:12 | EKG ---
Date Performed: 06/20/2017 Time Performed: 20:20:40 PTAGE: 27 years EKG: SINUS BRADYCARDIA WITH SINUS ARRHYTHMIA LEFT POSTERIOR FASCICULAR BLOCK ABNORMAL QRS-T ANGL E ABNORMAL ECG NO PREVIOUS TRACING DOCTOR: Joselyn Severino Interpretating Date/Time 06/21/2017 18:10:19
== END 2017-06-21 00:09 | disposition home or self-care (01) ==
LOC: PHED 20:11
DX: K29.00 Acute gastritis without bleeding (principal); R94.31 Abnormal electrocardiogram [ECG] [EKG]
CPT/HCPCS: 80053; 83690; 84484; 85025; 93005; 96374; 96375; 99284; C9113; J2405; J7030

== ENCOUNTER 2017-06-23 19:46 | Emergency (ER) | payer MEDICAID ==
[~2017-06-23] VITALS: Ht 182.9 cm; Wt 95.0 kg
[~2017-06-23 19:46] MED LIST changes: +OMEP20TA93 PO; +ZOFR4TAB3 SL
[2017-06-23 19:49] VITALS: BP 139/78; PULSE 73; RESP 16; TEMP 98.1; O2SAT 99
[2017-06-23] MEDS ORDERED: SODIUM CHLOR 0.9% 1000 ML INJ 1,000 ML IV ONE (22:55)
--- NOTE | 2017-06-23 22:58 | PD ---
HPI Chief Complaint: Headache Time Seen by Provider: 22:40 Travel History International Travel<30 days: No Contact w/Intl Traveler<30days: No Traveled to known affect area: No History of Present Illness HPI Patient comes emergency Department complaining of intermittent headaches over the past several days. Patient states they come and go feeling stabbing sensation throughout his head. Patient denies anything making this better or worse. Patient denies doing anything for this. Denies any chest pain, shortness of breath, change in vision, loss change in bowel or bladder, fevers, or IV drug use. Patient has been seen in the ER for similar in the past. PFSH Past Medical History Asthma: No Chest Pain: Yes Diminished Hearing: No GERD: Yes Immunizations Current: Yes Seizures: Yes (seizures as a small child - last seizure around age 3) Tetanus Vaccination: < 5 Years Past Surgical History Surgical History: No Previous Surgery Social History Alcohol Use: Yes (Occasionally) Tobacco Use: No Substance Use: No Allergies-Medications (Allergen,Severity, Reaction): Coded Allergies: No Known Allergies (Verified Adverse Reaction, Unknown, 06/20/17) Reported Meds & Prescriptions Reported Meds & Active Scripts Active Naprosyn (Naproxen) 500 Mg Tab 500 Mg PO Q12HR PRN Review of Systems Except as stated in HPI: all other systems reviewed are Neg Physical Exam Narrative GENERAL: Well-developed, overly nourished, in no acute distress, and non-ill appearing. SKIN: Focused skin assessment warm and dry. HEAD: Atraumatic. Normocephalic. EYES: Pupils equal and round. EOMI. No scleral icterus. No injection or drainage. ENT: No nasal bleeding or discharge. Mucous membranes pink and moist. NECK: Trachea midline. Supple. No nuclear rigidity. CARDIOVASCULAR: Regular rate and rhythm. No murmur appreciated. RESPIRATORY: No accessory muscle use. No respiratory distress. Clear to auscultation. Breath sounds equal bilaterally. MUSCULOSKELETAL: No obvious deformities. No clubbing. No cyanosis. No edema. Full range of motion. NEUROLOGICAL: Awake and alert. No obvious cranial nerve deficits. Motor grossly within normal limits. Normal speech. PSYCHIATRIC: Appropriate mood and affect; insight and judgment normal. Data Data Last Documented VS Vital Signs Date Time Temp Pulse Resp B/P (MAP) Pulse Ox O2 Delivery O2 Flow Rate FiO2 06/24/17 00:47 06/23/17 22:42 Room Air 06/23/17 19:49 98.1 73 16 99 Orders Orders Ecg Monitoring (06/23/17 22:55) Iv Access Insert/Monitor (06/23/17 22:55) Oximetry (06/23/17 22:55) Sodium Chloride 0.9% Flush (Ns Flush) (06/23/17 23:00) Diphenhydramine Inj (Benadryl Inj) (06/23/17 23:00) Metoclopramide Inj (Reglan Inj) (06/23/17 23:00) Sodium Chlor 0.9% 1000 Ml Inj (Ns 1000 M (06/23/17 22:55) Ed Discharge Order (06/23/17 23:56) MDM Medical Decision Making Medical Screen Exam Complete: Yes Emergency Medical Condition: Yes Differential Diagnosis Migraine, recurrent headache, Narrative Course The patient looks great and is in no significant objective discomfort currently. Headache is nonspecific. Exam is unremarkable. The patient is in no distress and the patients neurological exam is normal, neck is supple and without meningismus. The headache is not consistent with meningitis or infection , nor is it consistent with intracranial bleed (SAH etc.), carotid dissection, nor mass by history and examination. Patient reports improvement of symptoms after being medicated emergency department. Medication and outpatient follow up was instructed. The patient was instructed to return as needed or if symptoms changed or worsened, fever developed or inability to tolerate fluids. The patient agreed with plan. Patient in no obvious distress upon re-evaluation. Patient was asked if they wanted to speak to my attending, which the patient did not wish to do at this time. Any questions/concerns in reference to patient diagnosis/condition discussed and clarified prior to patient's discharge. Reinforced sheer importance of close follow up with patient's primary physician or primary care clinic. Instructed patient to return to ED immediately, if symptoms return/ worsen. Patient showed understanding of above instructions. Further instructions and recommendations were detailed in discharge paperwork. Patient ambulated without difficulty out of ED at discharge. Diagnosis Primary Impression: Headache Qualified Codes: R51 - Headache Patient Instructions: Acute Headache (ED), General Instructions Additional Instructions: Follow-up with your primary care physician and/or neurologist this week for reevaluation. Take all medication as prescribed. Drink plenty of non- caffeinated and nonalcoholic fluids. Return to the emergency department if symptoms get worse. Med/Other Pt SpecificInfo: Prescription(s) given Scripts Naproxen (Naprosyn) 500 Mg Tab 500 MG PO Q12HR Y for HEADACHE, #14 TAB 0 Refills Prov: Arturo Woodruff MD 06/23/17 Disposition: 01 DISCHARGE HOME Condition: Stable Gabe Barnard Jun 23, 2017 22:58
[2017-06-23] MEDS ORDERED: diphenhydrAMINE HCL 50 MG/ML VIAL IVP ONE (23:00)
[2017-06-23] MEDS ORDERED: METOCLOPRAMIDE HCL 10 MG/2 ML VIAL IVP ONE (23:00)
[2017-06-23] MEDS ORDERED: SODIUM CHLORIDE 0.9% FLUSH 10 ML FLUSH IVF PRN (23:00)
[2017-06-23] MEDS ORDERED: NAPR500 PO (23:55)
== END 2017-06-24 00:55 | disposition home or self-care (01) ==
LOC: NEPD 19:46
DX: R51 Headache (principal); Z87.19 Personal history of other diseases of the digestive system; Z86.69 Personal history of other diseases of the nervous system and sense organs
CPT/HCPCS: 96374; 96375; 99284; J1200; J2765; J7030

== ENCOUNTER 2017-08-24 10:19 | Emergency (ER) | payer MEDICAID ==
[~2017-08-24] VITALS: Ht 182.9 cm; Wt 92.7 kg
[~2017-08-24 10:19] MED LIST changes: -HYDR50TA94 PO; -IBUP1TAB7 PO; -IBUP200C PO; +NAPR500 PO; -OMEP20TA93 PO; -PENI500T PO; -ZOFR4TAB3 SL
[2017-08-24 10:20] VITALS: BP 138/75; PULSE 96; RESP 18; TEMP 99.7; O2SAT 97
--- NOTE | 2017-08-24 10:37 | PD ---
HPI Chief Complaint: Cold / Flu Symptoms Time Seen by Provider: 10:27 Travel History International Travel<30 days: No Contact w/Intl Traveler<30days: No Traveled to known affect area: No History of Present Illness HPI 27-year-old male presents to the ED for evaluation of 4 day history of sore throat, nonproductive cough, subjective fevers and body aches. Endorses bilateral ear pain and dulled sense of hearing. Throat pain rated 7/10, worsened by coughing and swallowing. No alleviating factors reported. Denies headache, sinus congestion, rhinorrhea, abdominal pain, nausea, vomiting, sick contacts. He did not receive this years flu shot. He is a nonsmoker. Treated with some OTC medications with no improvement of symptoms. PFSH Past Medical History Asthma: No Chest Pain: Yes Diminished Hearing: No GERD: Yes Immunizations Current: Yes Seizures: Yes (seizures as a small child - last seizure around age 3) Social History Alcohol Use: Yes (Occasionally) Tobacco Use: No Substance Use: No Allergies-Medications (Allergen,Severity, Reaction): Coded Allergies: No Known Allergies (Verified Adverse Reaction, Unknown, 08/24/17) Reported Meds & Prescriptions Reported Meds & Active Scripts Active Tessalon Perles (Benzonatate) 100 Mg Cap 200 Mg PO TID PRN Review of Systems Except as stated in HPI: all other systems reviewed are Neg Physical Exam Narrative GENERAL: Well-nourished, well-developed nontoxic appearing white male in no acute distress. SKIN: Warm and dry. HEAD: Normocephalic. Atraumatic. EYES: No scleral icterus. No injection or drainage. PERRLA. EOMI. ENT: Pearly bowen tympanic membranes bilaterally. Bilateral serous effusion. Nasal mucosa is moist. Oropharynx with mild posterior erythema. Scattered petechiae. No edema or exudate. Uvula midline. Airway patent. NECK: Supple, trachea midline. No JVD or lymphadenopathy. CARDIOVASCULAR: Regular rate and rhythm without murmurs, gallops, or rubs. RESPIRATORY: Breath sounds clear and equal bilaterally. No accessory muscle use. GASTROINTESTINAL: Abdomen soft, non-tender, nondistended. + Bowel sounds MUSCULOSKELETAL: No cyanosis, or edema. BACK: Nontender without obvious deformity. No CVA tenderness. Data Data Last Documented VS Vital Signs Date Time Temp Pulse Resp B/P (MAP) Pulse Ox O2 Delivery O2 Flow Rate FiO2 08/24/17 10:20 99.7 96 18 138/75 (96) 97 Orders Orders Influenzae A/B Antigen (08/24/17 10:31) Group A Rapid Strep Screen (08/24/17 10:31) Acetaminophen (Tylenol) (08/24/17 10:45) Strep Culture (Group A) (08/24/17 10:35) Ed Discharge Order (08/24/17 11:12) MDM Medical Decision Making Medical Screen Exam Complete: Yes Emergency Medical Condition: Yes Differential Diagnosis Final syndrome versus pharyngitis versus influenza versus strep pharyngitis versus other Narrative Course 27-year-old male presents to the ED for evaluation of 4 day history of sore throat, nonproductive cough, subjective fevers and body aches. Endorses bilateral ear pain and dulled sense of hearing. He did not receive this years flu shot. He is a nonsmoker. Temp 99.7 on presentation. Physical exam reveals a nontoxic-appearing white male in no acute distress. Bilateral serous effusions of the ears and mild posterior oropharyngeal erythema with scattered petechiae. Chest CTAB. Exam otherwise unremarkable. Patient was monitored 500 mg Tylenol by mouth. Rapid strep swab and influenza swabs are negative. This is viral syndrome. Patient's provided a short course of Tescarlos alberto Panchal, instructed to treat with OTC medications including ibuprofen or Tylenol as needed for fever and body aches. He is instructed return for worsening symptoms. He is stable and discharged home. Diagnosis Primary Impression: Viral syndrome Referrals: Primary Care Physician Patient Instructions: General Instructions, Viral Syndrome (ED) Additional Instructions: Rest, hydrate. Push fluids such as sports drinks, Pedialyte, popsicles, clear broth. Continue with symptomatic treatment with OTC medications. I recommend a multisymptom medication containing decongestant such as Mucinex D. Alternating ibuprofen and Tylenol every 6-8 as needed for continued fever. Increase handwashing frequently to avoid the spread of the virus to other family members and the community. Disinfect commonly touched surfaces such as light switches, microwaves, remote controls. Replace toothbrush at the end of this illness. Follow-up with the primary care provider. Return to the ED for worsening symptoms or any urgent or emergent medical condition. Med/Other Pt SpecificInfo: Prescription(s) given Scripts Benzonatate (Tessalon Perles) 100 Mg Cap 200 MG PO TID Y for COUGH, #15 CAP 0 Refills Prov: Flo Raphael MD 08/24/17 Disposition: 01 DISCHARGE HOME Condition: Stable Rosana Tay Aug 24, 2017 10:37
[2017-08-24] MEDS ORDERED: ACETAMINOPHEN 500 MG CPLT PO ONE (10:45)
[2017-08-24] MEDS ORDERED: BENZ100 PO (11:12)
== END 2017-08-24 11:23 | disposition home or self-care (01) ==
LOC: PHEFT 10:19
DX: B34.9 Viral infection, unspecified (principal); H92.03 Otalgia, bilateral; J02.9 Acute pharyngitis, unspecified; K21.9 Gastro-esophageal reflux disease without esophagitis
CPT/HCPCS: 87081; 87804; 87880; 99283

== ENCOUNTER 2017-12-15 00:14 | Emergency (ER) | payer MEDICAID | END 2017-12-15 01:23 | disposition home or self-care (01) | LOC: PHED 00:14 | DX: R51 Headache (principal); K21.9 Gastro-esophageal reflux disease without esophagitis; Z86.69 Personal history of other diseases of the nervous system and sense organs | CPT/HCPCS: 70450; 99283-25 ==